=== PATIENT | female | born 1980 | race Two or more races ===

== ENCOUNTER 2018-12-16 14:30 | Emergency (ER) | payer MEDICAID ==
[~2018-12-16] VITALS: Ht 162.6 cm; Wt 64.9 kg
--- NOTE | 2018-12-16 14:35 | NUR ---
ED Nurse Note: Patient walked into Ed accompanied by son c/o flu like symptoms, patient states that shes had a fevef for the past few days but at time of triage, VSS. patient complains of left arm pain as well. patient si alert and oriented x4, ambulatory with a steady gait, VSS
[2018-12-16] MEDS ORDERED: IBUPROFEN600 MG ORAL (14:39)
[2018-12-16] MEDS ORDERED: VITAMIN D1000 UNI1 ORAL (14:39)
[2018-12-16 14:42] VITALS: BP 106/72
--- NOTE | 2018-12-16 15:39 | Emergency Room Report ---
History of Present Illness General Chief Complaint: Upper Respiratory Illness Source: Patient Present Illness HPI 38-year-old female presents to the emergency department complaining of 10 out of 10 in severity generalized bodyaches with sore throat and fevers of up to 102 4 days. Patient reports she also had a slight cough several days ago which for the most part has resolved she reports nasal congestion and rhinorrhea. Denies recent travel or ill contacts with similar symptoms she states she is up- to-date with vaccinations except for this year's flu vaccination. She denies headache, neck pain or stiffness, photophobia, and as of breath or chest pain/ palpitations. No other modifying or relieving factors at this time Allergies: Coded Allergies: No Known Allergies (Unverified , 12/16/18) Patient History Past Medical History: see triage record Past Surgical History: none Pertinent Family History: none Last Menstrual Period: 11/23/2018 Now: No Reviewed Nursing Documentation: PMH: Agreed; PSxH: Agreed Nursing Documentation-PMH Past Medical History: No History, Except For Review of Systems All Other Systems: negative except mentioned in HPI Physical Exam Vital Signs Date Time Temp Pulse Resp B/P (MAP) Pulse Ox O2 Delivery O2 Flow Rate FiO2 12/16/18 14:35 98.2 96 16 106/72 97 Room Air Sp02 EP Interpretation: reviewed, normal General Appearance: no apparent distress, alert, GCS 15, non-toxic Head: normocephalic, atraumatic Eyes: bilateral eye normal inspection, bilateral eye PERRL ENT: hearing grossly normal, normal voice, TMs + canals normal, pharyngeal erythema Neck: full range of motion Respiratory: chest non-tender, lungs clear, normal breath sounds, no respiratory distress, no wheezing, speaking full sentences Cardiovascular #1: regular rate, rhythm Genitourinary: normal inspection Musculoskeletal: back normal, gait/station normal, normal range of motion, non- tender Neurologic: alert, oriented x3, responsive, motor strength/tone normal, sensory intact, speech normal, grossly normal Psychiatric: judgement/insight normal Skin: normal color, no rash, warm/dry, well hydrated Lymphatic: no adenopathy Medical Decision Making PA Attestation Dr. burt is my supervising Physician whom patient management has been discussed with. Diagnostic Impression: Primary Impression: Pharyngitis, acute Qualified Codes: J02.0 - Streptococcal pharyngitis ER Course 38-year-old female presents to the emergency department complaining of 10 out of 10 in severity generalized bodyaches with sore throat and fevers of up to 102 4 days. Patient reports she also had a slight cough several days ago which for the most part has resolved she reports nasal congestion and rhinorrhea. Denies recent travel or ill contacts with similar symptoms she states she is up- to-date with vaccinations except for this year's flu vaccination. She denies headache, neck pain or stiffness, photophobia, and as of breath or chest pain/ palpitations. No other modifying or relieving factors at this time Ddx considered but are not limited to: pharyngitis, strep, METHODOLOGIST, ludwigs angina, URI Vital signs: are WNL, pt. is afebrile H&PE are most consistent with: pharyngitis presumed strep. ORDERS: None required at this time as the diagnosis is clinical ED INTERVENTIONS: none required at this time. DISCHARGE: At this time pt. is stable for d/c to home. Will provide printed patient care instructions, and any necessary prescriptions. Care plan and follow up instructions have been discussed with the patient prior to discharge. Last Vital Signs Date Time Temp Pulse Resp B/P (MAP) Pulse Ox O2 Delivery O2 Flow Rate FiO2 12/16/18 14:42 96 16 Room Air 12/16/18 14:42 98.2 106/72 97 Disposition: HOME, SELF-CARE Condition: Stable Scripts Amoxicillin* (AMOXIL*) 500 Mg Capsule 500 MG ORAL BID for 10 Days, #20 CAP Prov: Marylou Jasmine 12/16/18 Acetaminophen* (TYLENOL EXTRA STRENGTH*) 500 Mg Tablet 500 MG ORAL Q6H PRN for Mild Pain/Temp > 100.5, #20 TAB 0 Refills Prov: Marylou Jasmine 12/16/18 Departure Forms: Return to Work Return to Work Date: Dec 19, 2018 Work Restrictions: None Return to Full Activity: Dec 19, 2018 Patient Instructions: Pharyngitis, [id number], Upper Respiratory Infection, Adult Additional Instructions: Take medications as directed. Follow up with a Primary Care Provider in 3-5 days, even if your symptoms have resolved. --Please review list of primary care clinics, if you do not already have a primary care provider Return sooner to ED if new symptoms occur, or current symptoms become worse. - Please note that this Emergency Department Report was dictated using [employer] tell[employer] technology software, occasionally this can lead to erroneous entry secondary to interpretation by the dictation equipment. Marylou Jasmine Dec 16, 2018 15:39
[2018-12-16] MEDS ORDERED: TYLENOL EXTRA500 MG ORAL (15:43)
[2018-12-16] MEDS ORDERED: AMOXICILLIN500 MG ORAL (15:43)
[2018-12-16 15:57] VITALS: BP 106/72
--- NOTE | 2018-12-16 15:58 | NUR ---
ER DISCHARGE NOTE: Patient is cleared to be discharged per ERMD, pt is aox4, on room air, with stable vital signs. pt was given dc and prescription instructions, pt was able to verbalize understanding, pt id band removed without complications. pt is able to ambulate with steady gait. pt took all belongings.
== END 2018-12-16 16:00 | disposition home or self-care (01) ==
LOC: EMR 15:13
DX: J02.0 Streptococcal pharyngitis (principal)
CPT/HCPCS: 99282

== ENCOUNTER 2019-09-27 16:28 | Emergency (ER) | payer MEDICAID, OTHER ==
[~2019-09-27] VITALS: Ht 157.5 cm; Wt 72.6 kg
[~2019-09-27 16:28] MED LIST: AMOXICILLIN500 MG ORAL; IBUPROFEN600 MG ORAL; TYLENOL EXTRA500 MG ORAL; VITAMIN D1000 UNI1 ORAL
--- NOTE | 2019-09-27 16:44 | NUR ---
ED Nurse Note: Patient arrived to ED from home complaining body aches and sore throat for the past 7 days. Patient denies chills, vomiting, diarrhea, dizziness. AxO x 4, no s/s of acute distress. at bedside.
[2019-09-27 16:50] VITALS: BP 115/70
--- NOTE | 2019-09-27 16:50 | NUR ---
ED Nurse Note: Rufina BRUNSON at bedside.
[2019-09-27] MEDS: Albuterol/Ipratropium 3ml neb HHN SCH ×2 (17:02→17:03)
--- NOTE | 2019-09-27 17:45 | NUR ---
ED Nurse Note: Patient resting in bed, she states she feels much better after the breathing treatment.
[2019-09-27 17:46] LABS: BASOPHILS % (AUTO) 0.4 % (0.0-2.0); HEMATOCRIT 39.4 % (37.0-47.0); HEMOGLOBIN 13.8 G/DL (12.0-16.0); LYMPHOCYTES % (AUTO) 21.1 % (20.0-45.0); MEAN CORPUSCULAR VOLUME 89 FL (80-99); MONOCYTES % (AUTO) 9.1 % (1.0-10.0); NEUTROPHILS % (AUTO) 69.4 % (45.0-75.0); PLATELET COUNT 188 K/UL (150-450); RED BLOOD COUNT 4.44 M/UL (4.20-5.40); RED CELL DISTRIBUTION WIDTH 9.8 % (11.6-14.8); WHITE BLOOD COUNT 6.9 K/UL (4.8-10.8)
[2019-09-27 17:48] LABS: APPEARANCE,URINE SLIGHTLY CLOUDY; BILIRUBIN, URINE 1+ (NEGATIVE); GLUCOSE, URINE (UA) NEGATIVE (NEGATIVE); KETONES,URINE 1+ (NEGATIVE); LEUKOCYTE ESTERASE ,URINE 1+ (NEGATIVE); NITRITE,URINE NEGATIVE (NEGATIVE); PH,URINE 5 (4.5-8.0); PROTEIN,URINE 2+ (NEGATIVE); UROBILINOGEN,URINE 4 MG/DL (0.0-1.0)
[2019-09-27 17:51] LABS: COLOR,URINE YELLOW
[2019-09-27 18:00] LABS: ANION GAP 10 mmol/L (5-15); BLOOD UREA NITROGEN 12 mg/dL (7-18); CALCIUM 8.7 MG/DL (8.5-10.1); CARBON DIOXIDE 25 MMOL/L (21-32); CHLORIDE 109 MMOL/L (98-107); CREATININE 0.6 MG/DL (0.55-1.30); POTASSIUM 3.7 MMOL/L (3.5-5.1); SODIUM 144 MMOL/L (136-145)
[2019-09-27 18:04] LABS: ALANINE AMINOTRANSFERASE 57 U/L (12-78); ALBUMIN 3.5 G/DL (3.4-5.0); ALKALINE PHOSPHATASE 90 U/L (46-116); ASPARTATE AMINO TRANSFERASE 32 U/L (15-37); BILIRUBIN,TOTAL 0.2 MG/DL (0.2-1.0)
--- NOTE | 2019-09-27 18:15 | Emergency Room Report ---
History of Present Illness General Chief Complaint: Flu Like Symptoms Source: Patient Present Illness HPI 39-year-old female with no significant past medical history here complaining of 1 week of cough and congestion and new onset of fever of 102 F today. Denies abdominal pain, nausea vomiting. Complains of sore throat rating a 10 out of 10 , headache and congestion. Has not taken medication for symptom relief other than Tylenol. Temperature is within normal limits Tylenol before coming here. Denies chest pain, palpitation, dizziness, urinary symptoms. Patient complains of chest pain upon coughing Allergies: Coded Allergies: No Known Allergies (Unverified , 12/16/18) Patient History Past Medical History: see triage record Past Surgical History: none Pertinent Family History: none Last Menstrual Period: 08/2019 Now: No Immunizations: UTD Reviewed Nursing Documentation: PMH: Agreed; PSxH: Agreed Review of Systems All Other Systems: negative except mentioned in HPI Physical Exam Vital Signs Date Time Temp Pulse Resp B/P (MAP) Pulse Ox O2 Delivery O2 Flow Rate FiO2 09/27/19 16:36 98.1 110 16 115/70 (85) 97 Room Air 09/27/19 17:07 21 Sp02 EP Interpretation: reviewed, normal General Appearance: no apparent distress, alert, GCS 15, non-toxic Head: normocephalic, atraumatic Eyes: bilateral eye normal inspection, bilateral eye PERRL ENT: hearing grossly normal, no angioedema, normal voice, TMs + canals normal, nasal congestion, tonsillar swelling, pharyngeal erythema Neck: full range of motion, supple, thyroid normal, no meningismus, no bony tend, no carotid bruits, supple/symm/no masses Respiratory: chest non-tender, no rhonchi, no respiratory distress, no retraction, no accessory muscle use, no wheezing, crackles - RLL Cardiovascular #1: regular rate, rhythm, no edema, no murmur, normal capillary refill Gastrointestinal: normal bowel sounds, non tender, soft, non-distended, no guarding, no rebound Genitourinary: no CVA tenderness Musculoskeletal: back normal, no calf tenderness Neurologic: alert, motor strength/tone normal, oriented x3, sensory intact, responsive, speech normal Psychiatric: judgement/insight normal, memory normal, mood/affect normal, no suicidal/homicidal ideation Skin: no rash, palpation normal, normal color Lymphatic: no adenopathy Medical Decision Making PA Attestation Diagnosis and treatment plans were reviewed and discussed with my supervising physician Dr. Frank Diagnostic Impression: Primary Impression: Atypical pneumonia Additional Impression: Chest pain, unspecified ER Course 39-year-old female with no significant past medical history here complaining of 1 week of cough and congestion and new onset of fever of 102 F today. Denies abdominal pain, nausea vomiting. Complains of sore throat rating a 10 out of 10 , headache and congestion. Has not taken medication for symptom relief other than Tylenol. Temperature is within normal limits Tylenol before coming here. Denies chest pain, palpitation, dizziness, urinary symptoms. Complains of chest pain upon coughing Ddx considered but are not limited to: Atypical pneumonia, bronchitis, PNA, URI viral, bacterial bronchitis Vital signs: are WNL, pt. is afebrile H&PE are most consistent with: Atypical pneumonia, unspecified chest pain ORDERS: Chest x-ray, CBC, CMP, UA, urine test, troponin, EKG, Robaxin , Phenergan, albuterol ED INTERVENTIONS: NS bolus, 3 treatments of albuterol ipratropium nebulizer DISCHARGE: At this time pt. is stable for d/c to home. Will provide printed patient care instructions, and any necessary prescriptions. Care plan and follow up instructions have been discussed with the patient prior to discharge. Patient to follow-up with primary care provider, take medication as directed, if worsening symptoms return to emergency room. EKG Diagnostic Results Rate: normal Rhythm: NSR ST Segments: no acute changes Other Impression No acute ST changes Chest X-Ray Diagnostic Results Chest X-Ray Diagnostic Results : Chest X-Ray Ordered: Yes # of Views/Limited/Complete: 1 View Indication: Shortness of Breath EP Interpretation: Yes PA Xray: Interpretation reviewed, by supervising MD, and agrees with findings. Interpretation: no consolidation, no effusion, no pneumothorax Impression: No acute disease Electronically Signed by: Rufina Olguin PA-C Last Vital Signs Date Time Temp Pulse Resp B/P (MAP) Pulse Ox O2 Delivery O2 Flow Rate FiO2 09/27/19 17:30 114 20 100 Room Air 21 104 20 100 09/27/19 16:50 98.1 115/70 Disposition: HOME, SELF-CARE Condition: Stable Scripts Albuterol Sulfate (VENTOLIN HFA) 18 Gm Hfa.aer.ad 2 PUFFS INH EVERY 6 HOURS, #18 GM 0 Refills Prov: Rufina Garza 09/27/19 Promethazine Hcl (PROMETHAZINE HCL*) 6.25 Mg/5 Ml Syrup 5 ML ORAL Q6H, #120 ML 0 Refills Prov: Rufina Garza 09/27/19 Azithromycin* (ZITHROMAX*) 250 Mg Tablet 250 MG ORAL DAILY, #6 TAB 0 Refills Take two tables once daily for 1 day, then one tablet once daily for 4 days. Prov: Rufina Garza 09/27/19 Referrals: [facility]ERR[facility] (PCP) Patient Instructions: Nonspecific Chest Pain, Upper Respiratory Infection, Adult Additional Instructions: Take medication as directed, follow-up with your primary care provider, if worsening symptoms return to emergency room Rufina Garza Sep 27, 2019 18:15
[2019-09-27] MEDS ORDERED: VENTOLIN HFA18 GM INH (18:17)
[2019-09-27] MEDS ORDERED: PROMETHAZI6.25 MG/1 ORAL (18:17)
[2019-09-27] MEDS ORDERED: ZITHROMAX250 MG ORAL (18:17)
[2019-09-27 18:20] VITALS: BP 115/70
--- NOTE | 2019-09-27 18:20 | NUR ---
ER DISCHARGE NOTE: Patient cleared for DC by Rufina JULIEN. VSS, verbalized understanding of DC instructions. ID band removed, Patient ambulates with steady gait, took all belongings.
--- NOTE | 2019-09-28 10:34 | Diagnostic Imaging Report ---
Indication: Cough Technique: One view of the chest Comparison: none Findings: Lungs and pleural spaces are clear. Heart size is normal. Impression: No acute process
== END 2019-09-27 18:20 | disposition home or self-care (01) ==
LOC: EMR 17:19
DX: J18.9 Pneumonia, unspecified organism (principal); R07.9 Chest pain, unspecified
CPT/HCPCS: 36415; 71045; 80053; 81003; 81025; 84484; 85025; 93005; 96360; J7030; Z7502; 99284; J7620